=== PATIENT | male | born 1990 | race Caucasian/White ===

== ENCOUNTER 2025-07-19 02:37 | Emergency (ER) | payer OTHER ==
[~2025-07-19] VITALS: Ht 182.9 cm; Wt 86.2 kg
[2025-07-19 05:18] VITALS: BP 112/75; TEMP 97.8; O2SAT 96
== END 2025-07-19 05:18 | disposition home or self-care (01) ==
LOC: ER 02:50
DX: M79.605 Pain in left leg (principal); Z88.0 Allergy status to penicillin
CPT/HCPCS: 93971-TC